=== PATIENT | female | born 1950 | race Caucasian/White ===

== ENCOUNTER → 2019-06-24 15:40 | Outpatient (BNVA) | payer BC, MEDICARE, SELFPAY | PROVIDERS: PCP Nurse Practitioner Family; Visit Provider Nurse Practitioner Family | DX: I10 Essential (primary) hypertension (principal) | CPT/HCPCS: 80053; 80061; 85025 ==

== ENCOUNTER → 2020-03-31 16:49 | Outpatient (BNVA) | payer MEDICARE, SELFPAY | PROVIDERS: PCP Nurse Practitioner Family; Visit Provider Nurse Practitioner Family | DX: I10 Essential (primary) hypertension (principal); E78.2 Mixed hyperlipidemia; Z78.9 Other specified health status; J30.89 Other allergic rhinitis; R42 Dizziness and giddiness | CPT/HCPCS: 80053; 80061; 84443; 85025 ==

== ENCOUNTER → 2021-05-02 11:41 | Outpatient (BNVA) | payer MEDICARE, SELFPAY | PROVIDERS: PCP Nurse Practitioner Family; Visit Provider Nurse Practitioner Family | DX: Z00.00 Encounter for general adult medical examination without abnormal findings (principal); I10 Essential (primary) hypertension | CPT/HCPCS: 80053; 80061; 84443; 85025 ==

== ENCOUNTER 2022-07-17 11:49 | Emergency (ER) | payer MEDICARE, SELFPAY ==
[2022-07-17] VITALS (13 sets, daily range): BP systolic 130–181; BP diastolic 67–96; PULSE 90–103; RESP 14–18; TEMP 36.2–36.7; O2SAT 97–100
--- NOTE | 2022-07-17 11:50 | W.ED.FALL ---
HPI - Fall General: Chief Complaint: Extremity Injury, Upper Stated Complaint: FALL/ SHOULDER DEFORMITY Time Seen by Provider: 07/17/22 11:50 History of Present Illness: Ms. Barraza is a 71-year-old lady with history of hypertension and hyperlipidemia not on anticoagulation presenting to the emergency department due to fall with injury. She reports being at her baseline health and slipped on the ice falling backwards landing primarily impacting her right elbow. No head strike or loss of consciousness. She was able to ambulate after this however essentially had the arm just dangling down. 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 Intensity symptoms of pain is moderate to severe primarily in the mid to upper humerus region. Worse with range of motion. Improved with EMS treatment of currently inhaled ketamine. No other specific changes in health, exacerbating, or alleviating factors identified. Onset (ago): minute(s) Fall from: standing Fall witnessed: no Place fall occurred: home Loss of consciousness: None Prolonged down time: no Symptoms prior to fall: none Context: tripped/slipped Location of injury - extremities: Right: shoulder and arm Severity: moderate Quality: sharp and aching Associated symptoms-after fall: Reports no associated symptoms Review of Systems General: Reports: 10 or more systems reviewed and unremarkable except in HPI and below PFSH ED PFSH: Medical History (Updated 07/25/22 @ 00:03 by AVIVA Somers) HTN (hypertension) Hyperlipidemia Statin intolerance Surgical History Hx of arthroscopy of left knee (~2003) Social History Smoking and tobacco status: never smoked Second hand smoke exposure: No Alcohol intake: never Lives independently: Yes Household members: family Marital status: Single service: No Current occupational status: employed Current occupation: [employer] History of recent travel: No Current gender identity: Female Physical Exam Const: COMMON NORMALS: alert GENERAL APPEARANCE: cooperative and well developed HENMT: COMMON NORMALS: normocephalic and atraumatic HEAD & SCALP: normocephalic and atraumatic OTHER: No jones signs or raccoon eyes. No otorrhea or rhinorrhea. Jaw alignment normal. Dentition baseline. No obvious bony step-offs. No septal hematoma. No evidence of ocular entrapment. Eye: COMMON NORMALS: conjunctivae normal CONJUNCTIVA: Yes conjunctivae normal SCLERA: sclerae normal Neck/C-Spine: COMMON NORMALS: supple GENERAL: Yes trachea midline Resp: COMMON NORMALS: normal respiratory effort and clear to auscultation bilaterally EFFORT & INSPECTION: Yes able to speak in complete sentences AUSCULTATION: clear to auscultation bilaterally Cardio: COMMON NORMALS: regular rate and regular rhythm RATE: regular rate RHYTHM: regular rhythm GI: COMMON NORMALS: Soft to palpation PALPATION: Yes Soft to palpation and No Tenderness to palpation present (GI) Back/Pelvis: COMMON NORMALS: no thoracic nor lumbar tenderness Extremity: NARRATIVE EXTREMITY EXAM: Patient presents in sling of right upper extremity Right clavicle no tenderness to palpation. Right mid to proximal humerus tenderness palpation. No tenderness palpation of elbow joint. Mild mid forearm tenderness palpation. No hand or snuffbox tenderness palpation. Warm and well-perfused. Sensation intact. Motor intact. CMS intact all extremities. GENERAL: Yes normal exam except as noted and No edema Neuro: COMMON NORMALS: moves all extremities SENSORIUM/ORIENTATION: Yes alert and No Orientation impaired Psych: COMMON NORMALS: mental status grossly normal and Normal thought process present THOUGHT PROCESS: Normal thought process present Procedures Orthopedic Fracture Reduction Fracture #1: Time Out Performed: Yes Side: right Fracture Reduction Location: humerus Analgesia: procedural sedation Technique: traction/counter-traction Post Reduction X-rays Demonstrate: acceptable reduction Post-reduction neuro exam: intact and no change Post-reduction vascular exam: intact and no change Splint Applied: Yes Patient Tolerated Procedure: well and no complications Orthopedic Splinting/Casting Injury #1: Side: right Upper Extremity Injury Location: upper arm Additional Comments: Coaptation splint Procedural Sedation Presedation Evaluation: coffee this AM, no solids, no personal or family history of problems with anesthesia. ASA Class: II Time of Last PO Intake: 08:00 Preparation: director of medical review applied, pulse oximeter, supplemental O2 applied, suction/airway equipment at bedside and IV secured IV Propofol dose (mg): 100 Patient Tolerated Procedure: well and no complications Complications: none Course Vital Signs: Vital signs: Vital Signs Temperature 98.0 F 07/17/22 15:52 Pulse Rate 95 07/17/22 15:52 Respiratory Rate 16 07/17/22 15:52 Blood Pressure 154/80 07/17/22 15:52 Pulse Oximetry 100 07/17/22 15:52 Oxygen Delivery Me thod 07/17/22 15:23 MDM - Fall Medical Decision Making 71-year-old lady presenting due to fall. Exam as above. Labs with minimal leukocytosis which is likely reactive, no significant metabolic abnormalities. Overall similar to prior. X-rays demonstrate oblique displaced fracture of the proximal right humerus. No lobar consolidation or pneumothorax on chest x-ray. Discussed with orthopedics. Patient to be placed in splint. Given degree of discomfort and displacement I discussed various options with the patient. We will proceed with procedural sedation and closed reduction or splinting. Performed without complication and patient fully recovered Plan to have outpatient follow-up. The results of ED evaluation were discussed with the patient including prescriptions and/or symptomatic cares (if applicable) including appropriate and responsible use, followup plan, and return precautions. The patient verbalized understanding and felt safe for discharge. Medical Records I reviewed the patient's medical records. Lab Data I reviewed the patient's lab results. 07/17/22 13:00 07/17/22 13:00 Radiology Impressions Forearm X-Ray 07/17/22 11:55 IMPRESSION: No acute findings. Shoulder X-Ray 07/17/22 11:55 IMPRESSION: Oblique displaced and retracted fracture proximal right humerus Chest X-Ray 07/17/22 12:18 IMPRESSION: No acute findings. Humerus X-Ray 07/17/22 14:43 IMPRESSION: Oblique displaced fracture proximal shaft of the right humerus with improved alignment post reduction. Laboratory Results WBC 12.0 10^3/uL (4.0-10.0) H 07/17/22 13:00 RBC 4.92 10^6/uL (4.1-5.3) 07/17/22 13:00 Hgb 13.9 g/dL (11.5-15.3) 07/17/22 13:00 Hct 44.2 % (37.0-47.0) 07/17/22 13:00 MCV 89.8 fl (81-99) 07/17/22 13:00 MCH 28.3 pg (28.0-34.0) 07/17/22 13:00 MCHC 31.4 g/dL (30.0-36.0) 07/17/22 13:00 RDW 13.0 % (12.1-15.1) 07/17/22 13:00 Plt Count 251 10^3/cmm (130-400) 07/17/22 13:00 MPV 10.0 fL (7.4-10.4) 07/17/22 13:00 Neut % (Auto) 88.8 % 07/17/22 13:00 Lymph % (Auto) 6.4 % 07/17/22 13:00 Sumner % (Auto) 3.8 % 07/17/22 13:00 Eos % (Auto) 0.3 % 07/17/22 13:00 Baso % (Auto) 0.3 % 07/17/22 13:00 Neut # (Auto) 10.61 10^3/uL (1.8-7.7) H 07/17/22 13:00 Lymph # (Auto) 0.8 10^3/uL (0.8-4.8) 07/17/22 13:00 Sumner # (Auto) 0.5 10^3/uL (0.2-0.9) 07/17/22 13:00 Eos # (Auto) 0.0 10^3/uL (0.0-0.8) 07/17/22 13:00 Baso # (Auto) 0.0 10^3/uL (0.0-0.1) 07/17/22 13:00 Nucleated RBC % (auto) 0 % 07/17/22 13:00 Nucleated RBCs # 0.0 /100WBC 07/17/22 13:00 Sodium 138 mmol/L (136-145) 07/17/22 13:00 Potassium 4.0 mmol/L (3.5-5.1) 07/17/22 13:00 Chloride 102 mmol/L (98-107) 07/17/22 13:00 Carbon Dioxide 24 mmol/L (22-29) 07/17/22 13:00 Anion Gap 16.0 (5-19) 07/17/22 13:00 BUN 14 mg/dL (8-23) 07/17/22 13:00 Creatinine 0.7 mg/dL (0.5-0.9) 07/17/22 13:00 GFR Calculation 83.0 mL/min (90-130) L 07/17/22 13:00 Glucose 118 mg/dL (65-115) H 07/17/22 13:00 Calculated Osmolality 288 mOsm/kg (285-295) 07/17/22 13:00 Calcium 9.3 mg/dL (8.5-10.5) 07/17/22 13:00 Discharge Plan Discharge Patient Disposition: Home Clinical Impression: Fracture, humerus, proximal Condition: Stable Prescriptions: New ondansetron 4 mg tablet,disintegrating 4 mg PO Q8H PRN (Reason: nausea and vomiting) Qty: 15 0RF oxycodone 5 mg tablet 5 mg PO Q4H PRN (Reason: pain) Qty: 30 0RF No Action fluticasone propionate [Flonase Allergy Relief] 50 mcg/actuation spray,suspension 2 spray INTRANASAL DAILY Qty: 15.8 5RF Rx Instructions: administer into each nostril cetirizine [Zyrtec] 10 mg Tablet 10 mg PO QAM metoprolol tartrate 25 mg tablet 25 mg PO QAM Discharge Orders: Discharge ED (Routine); Ordered 07/17/22 Ordered By: Hao Campbell Referrals: Stephanie Vanessa APN [Primary Care Provider] - Discharge Diet: Usual diet Discharge Activity: Limit activity as instructed Patient Instructions: Splint Care (ED), Proximal Humerus Fracture (ED), Procedural Sedation (ED), Opioid Safety Activity Restrictions/Additional Instructions: Thank you for visiting the emergency department. You were seen and evaluated for fall with arm pain. You are found to have a proximal humerus fracture which was reduced and splinted in the emergency department under procedural sedation. I will message case management for orthopedic follow-up. I will prescribe oxycodone and antinausea medication. Use oxycodone carefully as it is an opioid and can cause sedation, REGULATORY CONSULTANT depression, respiratory depression. Other common side effects are constipation, use a stool softener which can be purchased over the counter. You may use hpct-yju-[id number] medications such as acetaminophen and ibuprofen for pain however please do not exceed the daily recommended dosage as listed on the packaging and please keep in mind that many namebrand medications contain the same active ingredients. Please avoid these medications if previously instructed to do so by another physician due to other underlying medical condition. Return to the emergency department for uncontrolled pain, any change in ability to feel or move fingers or wrist, any color change or cold feeling, or anything else that you are concerned about a feel needs emergency department evaluation. Coding Level of Care Code ED Information Technology Security Manager for [employer]
--- NOTE | 2022-07-17 11:55 | XRR_ITS ---
PROCEDURE INFORMATION: Exam: XR Right Humerus Exam date and time: 07/17/2022 12:02 PM Age: 71 years old Clinical indication: Pain and injury or trauma; Fall; Bleeding/hemorrhage; Arm, upper; Right; Upper arm; Additional info: Fall, pain TECHNIQUE: Imaging protocol: Radiologic exam of the Right humerus. Views: 2 or more views. COMPARISON: No relevant prior studies available. FINDINGS: Bones/joints: There is a comminuted oblique medially displaced fracture of the proximal shaft of the right humerus. The glenohumeral joint is intact. No additional bony abnormalities seen. Soft tissues: Normal. XR/[place] [id number] IMPRESSION: Oblique displaced fracture of the proximal shaft of the right humerus
--- NOTE | 2022-07-17 11:55 | XRR_ITS ---
PROCEDURE INFORMATION: Exam: XR Right Forearm Exam date and time: 07/17/2022 12:02 PM Age: 71 years old Clinical indication: Pain and injury or trauma; Fall; Bleeding/hemorrhage; Arm, lower; Right; Lower or forearm; Additional info: Fall, pain TECHNIQUE: Imaging protocol: Radiologic exam of the Right forearm. Views: 2 views. COMPARISON: No relevant prior studies available. FINDINGS: Bones/joints: Negative for acute bony abnormalities. Soft tissues: Normal. XR/XR forearm RT 2V [id number] IMPRESSION: No acute findings.
--- NOTE | 2022-07-17 11:55 | XRR_ITS ---
PROCEDURE INFORMATION: Exam: XR Right Shoulder Exam date and time: 07/17/2022 12:02 PM Age: 71 years old Clinical indication: Injury or trauma; Fall; Blunt trauma (contusions or hematomas); Shoulder; Right; Additional info: Fall, pain TECHNIQUE: Imaging protocol: Radiologic exam of the Right shoulder. Views: 2 or more views. COMPARISON: No relevant prior studies available. FINDINGS: Bones/joints: There is an oblique displaced and retracted fracture proximal shaft of the right humerus. The glenohumeral joint is intact. Soft tissues: Unremarkable XR/XR shoulder RT min 2V* [id number] IMPRESSION: Oblique displaced and retracted fracture proximal right humerus
--- NOTE | 2022-07-17 12:18 | XRR_ITS ---
PROCEDURE INFORMATION: Exam: XR Chest Exam date and time: 07/17/2022 12:18 PM Age: 71 years old Clinical indication: Injury or trauma; Fall; Blunt trauma (contusions or hematomas) TECHNIQUE: Imaging protocol: Radiologic exam of the chest. Views: 1 view. COMPARISON: CR XR shoulder RT min 2V* [id number] 07/17/2022 12:02 PM FINDINGS: Lungs: Unremarkable. No consolidation. Pleural spaces: Unremarkable. No pleural effusion. No pneumothorax. Heart/Mediastinum: Unremarkable. No cardiomegaly. Bones/joints: Unremarkable. XR/XR chest 1V portable [id number] IMPRESSION: No acute findings.
--- NOTE | 2022-07-17 12:28 | PC.PHAR ---
Addendum entered by Ayanna Sebastian 07/17/22 12:33: PT STATES SHE MAY HAVE MORE ALLERGIES THAN LISTED BUT IS UNSURE WHAT THEY ARE PER FELICIANO PETER AT [facility] STATES THEY HAVE NO LISTED ALLERGIES FOR THE PT Original Note: PT STATES SHE TAKES CARE OF HER OWN MEDICATIONS-PT STATES SHE TAKES METOPROLOL TARTRATE 25MG QAM EXT MED HISTORY SHOWS LAST FILLED FOR 25MG BID ON 04/10/22 90D/S
[2022-07-17 13:15] LABS: Basophils % 0.3 %; Eosinophils % 0.3 %; Hematocrit 44.2 % (37.0-47.0); Hemoglobin 13.9 g/dL (11.5-15.3); Lymphocytes # 0.8 10^3/uL (0.8-4.8); Lymphocytes % 6.4 %; Mean Corpuscular HGB Conc 31.4 g/dL (30.0-36.0); Mean Corpuscular Hemoglobin 28.3 pg (28.0-34.0); Mean Corpuscular Volume 89.8 fl (81-99); Monocytes # 0.5 10^3/uL (0.2-0.9); Monocytes % 3.8 %; Neutrophils # 10.61 10^3/uL (1.8-7.7); Neutrophils % 88.8 %; Nucleated Red Blood Cells % 0 %; Platelet Count 251 10^3/cmm (130-400); Red Blood Count 4.92 10^6/uL (4.1-5.3)
[2022-07-17 13:33] LABS: Blood Urea Nitrogen 14 mg/dL (8-23); Calcium 9.3 mg/dL (8.5-10.5); Carbon Dioxide 24 mmol/L (22-29); Chloride 102 mmol/L (98-107); Creatinine Clr Calc Pharmacy 64.7279; Glucose 118 mg/dL (65-115); Osmolality Calculated 288 mOsm/kg (285-295); Sodium 138 mmol/L (136-145)
--- NOTE | 2022-07-17 14:19 | PC.NURSE ---
pt placed on bedside quality assurance monitor
[2022-07-17] MEDS: sodium chloride 0.9% 1,000 ML 999 ML IV (14:22)
[2022-07-17] MEDS: ondansetron 2 mg/ML SDV 2 mL 4 MG IVP (14:22)
[2022-07-17] MEDS: propofol 10 mg/mL SDV 20 mL IVP ×2 (14:33→14:53)
--- NOTE | 2022-07-17 14:33 | PC.NURSE ---
RT at bedside for procedure
[2022-07-17] MEDS: morphine 4 mg/mL SDV 1 mL IVP (14:42)
--- NOTE | 2022-07-17 14:43 | XRR_ITS ---
PROCEDURE INFORMATION: Exam: XR Right Humerus Exam date and time: 07/17/2022 2:54 PM Age: 71 years old Clinical indication: Injury or trauma; Fall; Fracture, traumatic injury; Closed fracture and displaced; Right; Upper end of humerus; Injury date: 07/17/2022; Patient HX: Post reduction and splinting; Additional info: Post reduction/splinting TECHNIQUE: Imaging protocol: Radiologic exam of the Right humerus. Views: 2 or more views. COMPARISON: [place] [id number] 07/17/2022 12:02 PM FINDINGS: Bones/joints: There is an oblique displaced fracture involving the proximal shaft of the right humerus. The alignment of the fracture is improved post reduction Soft tissues: Normal. XR/[place] [id number] IMPRESSION: Oblique displaced fracture proximal shaft of the right humerus with improved alignment post reduction.
--- NOTE | 2022-07-18 08:56 | DCPLANNER ---
Addendum entered by Sarah Rose 07/19/22 13:37: litigation services manager called the office of Dr. Naik in [facility] to confirm that clinic received patients information. litigation services manager was told that clinic had received patients information, and patient is scheduled with Dr. Naik. Addendum entered by Sarah Rose 07/18/22 14:37: litigation services manager received the following message from the ortho clinic regarding follow up appointment: called patient - she said she wants to go to Dr. Naik - i let her know i would forward a msg to case management in the ER and they will contact her litigation services manager called patient to confirm that patient wanted to be referred to Dr. Naik - case aide faxed patients information to the office of Dr. Naik phone number fax number Original Note: litigation services manager had message to schedule a follow up appointment for patient with ortho. litigation services manager sent patients information to the front office staff at ortho. Patients information will be printed and reviewed. Clinic will call patient with appointment information.
== END 2022-07-17 15:56 | disposition home or self-care (01) ==
PROVIDERS: Emergency Provider Emergency Medicine; PCP Nurse Practitioner Family
DX: S42.291A Other displaced fracture of upper end of right humerus, initial encounter for closed fracture (principal); I10 Essential (primary) hypertension; E78.5 Hyperlipidemia, unspecified; W00.0XXA Fall on same level due to ice and snow, initial encounter
CPT/HCPCS: 24505; 36415; 71045; 73030; 73060; 73090; 80048; 85025; 94799; 96374; 96375; 99285; 99291; J2270; J2405; J2704; J7030

== ENCOUNTER 2022-09-05 06:00 | Outpatient (RCR) | payer MEDICARE, SELFPAY | END 2022-09-14 23:59 | disposition home or self-care (01) | LOC: TPT 06:00 | PROVIDERS: Visit Provider Orthopaedic Surgery | DX: Z47.89 Encounter for other orthopedic aftercare (principal); S42.221D 2-part displaced fracture of surgical neck of right humerus, subsequent encounter for fracture with routine healing; X58.XXXD Exposure to other specified factors, subsequent encounter | CPT/HCPCS: 97110; 97140; 97162 ==

== ENCOUNTER 2022-09-15 06:00 | Outpatient (RCR) | payer MEDICARE, SELFPAY | END 2022-10-14 23:59 | disposition home or self-care (01) | LOC: TPT 06:00 | PROVIDERS: Visit Provider Orthopaedic Surgery | DX: Z47.89 Encounter for other orthopedic aftercare (principal); S42.221D 2-part displaced fracture of surgical neck of right humerus, subsequent encounter for fracture with routine healing; X58.XXXD Exposure to other specified factors, subsequent encounter | CPT/HCPCS: 97110; 97140 ==

== ENCOUNTER → 2023-07-22 09:45 | Outpatient (BNVA) | payer MEDICARE, SELFPAY | PROVIDERS: PCP Nurse Practitioner Family; Visit Provider Nurse Practitioner Family | DX: I10 Essential (primary) hypertension (principal); R73.9 Hyperglycemia, unspecified | CPT/HCPCS: 80053; 80061; 83036; 84443; 85025 ==

== ENCOUNTER 2024-02-26 06:00 | Outpatient (CLI) | payer MEDICARE, SELFPAY | END 2024-02-26 06:01 | disposition home or self-care (01) | LOC: RAD 03-11 06:53 | PROVIDERS: PCP Nurse Practitioner Family; Visit Provider Nurse Practitioner Family | DX: R11.0 Nausea (principal); R42 Dizziness and giddiness; Z20.822 Contact with and (suspected) exposure to COVID-19 | CPT/HCPCS: 80053; 85025; 87426 ==

== ENCOUNTER → 2024-12-29 10:20 | Outpatient (BNVA) | payer MEDICARE, SELFPAY | PROVIDERS: PCP Nurse Practitioner Family; Visit Provider Nurse Practitioner Family | DX: I10 Essential (primary) hypertension (principal); G31.84 Mild cognitive impairment of uncertain or unknown etiology; E55.9 Vitamin D deficiency, unspecified | CPT/HCPCS: 80053; 80061; 82306; 82607; 82746; 84443; 85025 ==

== ENCOUNTER 2025-01-15 06:30 | Outpatient (RCR) | payer MEDICARE, SELFPAY | END 2025-02-14 23:59 | disposition home or self-care (01) | LOC: TST 06:30 | PROVIDERS: Visit Provider Nurse Practitioner Family | DX: G31.84 Mild cognitive impairment of uncertain or unknown etiology (principal) | CPT/HCPCS: 92507; 92523 ==

== ENCOUNTER → 2025-01-29 10:43 | Outpatient (BNVA) | payer MEDICARE, SELFPAY | PROVIDERS: PCP Nurse Practitioner Family; Visit Provider Nurse Practitioner Family | DX: R30.0 Dysuria (principal) | CPT/HCPCS: 81000 ==

== ENCOUNTER 2025-02-15 06:30 | Outpatient (RCR) | payer MEDICARE, SELFPAY | END 2025-02-22 13:06 | disposition home or self-care (01) | LOC: TST 06:30 | PROVIDERS: PCP Nurse Practitioner Family; Visit Provider Nurse Practitioner Family | DX: G31.84 Mild cognitive impairment of uncertain or unknown etiology (principal) | CPT/HCPCS: 92507 ==

== ENCOUNTER → 2025-04-06 11:00 | Outpatient (BNVA) | payer MEDICARE, SELFPAY | PROVIDERS: PCP Nurse Practitioner Family; Visit Provider Nurse Practitioner Family | DX: F03.90 Unspecified dementia, unspecified severity, without behavioral disturbance, psychotic disturbance, mood disturbance, and anxiety (principal); R41.3 Other amnesia; R73.9 Hyperglycemia, unspecified; E55.9 Vitamin D deficiency, unspecified | CPT/HCPCS: 80053; 82306; 82607; 83036; 84443; 85025 ==

== ENCOUNTER 2025-04-19 14:06 | Outpatient (CLI) | payer MEDICARE, SELFPAY ==
--- NOTE | 2025-04-19 16:00 | USCV_ITS ---
Emmy Barraza Age: 74 Gender: F : 1950 Exam Date: 04/19/2025 14:45 Ordering Phys: Lilly Paredes BULK RECEIVER Technologist: Exam Location: [facility] [place] Indication: dizzy Risk Factors: Previous Vascular Surgery: Right Brachial BP: / Left Brachial BP: / Right Left Velocity (cm/s) Spectral Plaque Velocity (cm/s) Spectral Plaque Syst/Diast Broadening Syst/Diast Broadening 122.40/15.80 Prox CCA 96.70 / 15.00 96.90/ 15.80 Mid CCA 82.60 / 14.70 95.30/ 15.80 Distal CCA 77.60 / 16.40 60.30/ 9.40 Prox ICA 65.90 / 13.00 106.40/18.90 Mid ICA 84.00 / 18.00 104.90/17.30 Distal ICA 118.20/ 26.10 135.10 ECA 89.00 1.10 ICA/CCA 1.50 Antegrade Vertebral Antegrade 58.40/ 12.50 cm/s 39.30/ 4.80 cm/s Tri Subclavian Tri 139.8 110.0 0 0 CONCLUSIONS Right ICA stenosis <50%. Left ICA stenosis <50%. Intimal thickening in the common carotid arteries and internal carotid arteries bilaterally. Normal antegrade Doppler flow noted in the right vertebral artery. Normal antegrade Doppler flow noted in the left vertebral artery. Laci Lemus MD (Electronically Signed) Final Date: 19 April 2025 15:45 S
== END 2025-04-19 14:07 | disposition home or self-care (01) ==
LOC: RAD 14:08
PROVIDERS: PCP Nurse Practitioner Family; Visit Provider Nurse Practitioner Family
DX: R42 Dizziness and giddiness (principal); F03.90 Unspecified dementia, unspecified severity, without behavioral disturbance, psychotic disturbance, mood disturbance, and anxiety; I65.23 Occlusion and stenosis of bilateral carotid arteries
CPT/HCPCS: 93880

== ENCOUNTER 2025-04-22 08:08 | Outpatient (CLI) | payer MEDICARE, SELFPAY ==
--- NOTE | 2025-04-22 08:45 | MR_ITS ---
WS: [id number] MRI BRAIN WITHOUT CONTRAST HISTORY: R41.3 - Other amnesia COMPARISON: None available. TECHNIQUE: Diffusion imaging, multiplanar T1, T2 and FLAIR imaging obtained. No evidence for acute infarct or hemorrhage. Diaz-white matter differentiation is normal. No prior infarcts. There are a few scattered T2 and FLAIR signal hyperintensities predominantly in the supratentorial white matter towards the vertex and greatest on the RIGHT. Very mild cerebral and cerebellar atrophy. Mild bilateral increased signal in the rosa from small vessel disease. Mild hippocampal atrophy. Ventricles and extra-axial spaces are normal. No inferior displacement of cerebellar tonsils. The sella turcica and pituitary gland are unremarkable. Dural venous sinuses and [place] demonstrate no abnormality on this unenhanced studies. Paranasal sinuses: Heterogeneous periosteal thickening in the floor the maxillary sinuses with small air-fluid levels. Mild ethmoid air cell disease. Mastoid air cells: Small amount of fluid in the mastoid air cells, greatest on the LEFT. Calvarium and scalp: Intact. MR/MR head wo con* [id number] IMPRESSION: 1. No acute infarct or hemorrhage. 2. Mild cerebral and cerebellar atrophy. 3. Very mild small vessel ischemic changes in the supratentorial brain towards the vertex. 4. Mild small vessel changes in the rosa, bilateral. 5. Mild hippocampal atrophy. 6. Mild mucoperiosteal disease in the maxillary and ethmoid air cells.
== END 2025-04-22 08:09 | disposition home or self-care (01) ==
PROVIDERS: PCP Nurse Practitioner Family; Visit Provider Nurse Practitioner Family
DX: R41.3 Other amnesia (principal); G31.89 Other specified degenerative diseases of nervous system; I67.82 Cerebral ischemia; J32.2 Chronic ethmoidal sinusitis
CPT/HCPCS: 70551

== ENCOUNTER → 2025-05-05 12:53 | Outpatient (BNVA) | payer MEDICARE, SELFPAY | PROVIDERS: PCP Nurse Practitioner Family; Visit Provider Nurse Practitioner Family | DX: E87.5 Hyperkalemia (principal) | CPT/HCPCS: 80048 ==